=== PATIENT | male | born 1955 | race Caucasian/White ===

== ENCOUNTER → 2017-08-22 09:32 | Outpatient (CLI) | payer OTHER, SELFPAY ==
[2017-08-22 10:31] LABS: Absolute Lymphocyte Count 2.05 X10^3/ul (0.83-4.51); Absolute Neutrophil Count 4.5 X10^3/uL (2.0-7.7); Basophil# 0.03 X10^3/uL; Basophil% 0.4 % (0-1); Eosinophil# 0.11 X10^3/uL; Eosinophils% 1.5 % (0-5); Hematocrit 44.9 % (40-54); Hemoglobin 15.5 g/dl (13.0-16.5); Lymphocyte # 2.05 X10^3/ul (4.0); Lymphocyte % 27.3 % (19-41); Mean Corp Hgb Conc 34.5 g/gl (32-36); Mean Corpuscular Hgb 32.1 pg (27.0-32.0); Mean Platelet Vol. 9.3 fl (6.2-12.0); Monocyte# 0.73 X10^3/uL; Monocyte% 9.7 % (0-10); Neutrophil # 4.49 X10^3/uL (2.7-7.7); Neutrophil % 59.6 % (47-70); Platelet Count 233 K/mm3 (150-450); RBC Distribution Width CV 13.7 % (11.6-14.6); RBC Distribution Width SD 45.1 fl (35.1-43.9); Red Blood Count 4.83 M/mm3 (4.6-6.2); White Blood Count 7.5 K/mm3 (4.4-11.0)
[2017-08-22 10:33] LABS: POSITIVE COUNT NO; POSITIVE DIFFERENTIAL NO; POSITIVE MORPHOLOGY NO
[2017-08-22 10:51] LABS: Microalbumin,Random Urine 5.7 mg/L (NO RANGE EST.); Microalbumin:Creatinine Ratio 6.2 mg/g CRE (<30 mg/g CRE)
[2017-08-22 11:06] LABS: ALB/GLOB Ratio 1.3 RATIO (0.9-2.4); AST(SGOT) 20 U/L (15-37); Alanine Aminotransfer ALT/SGPT 31 U/L (12-78); Albumin, Serum 3.9 g/dL (3.4-5.0); Alkaline Phosphatase 70 U/L (45-117); Anion Gap 8 (5-15); BUN 17 mg/dL (7-18); BUN/Creat Ratio 20.7 RATIO (10-20); Calcium,Total 9.2 mg/dL (8.5-10.1); Chloride 105 mmol/L (98-107); Cholesterol 187 mg/dL (200); Creatinine, Serum 0.82 mg/dL (0.70-1.30); EST Glomerular Filtration Rate 101 mL/min (>60); Est Glom Filt Rate - Afr Amer 122 mL/min (>60); Globulin 3.1 g/dL (2.3-3.5); Glucose 116 mg/dL (70-110); High Density Lipoprotein 46 mg/dL; PSA,Total - Annual Screen 1.49 ng/mL (0.00-4.00); Potassium 4.5 mmol/L (3.5-5.1); Sodium Level 141 mmol/L (136-145); Triglycerides 160 mg/dL; Very Low Density Lipoprotein 32 mg/dL (5-40)
[2017-08-22 13:30] LABS: Uric Acid 4.2 mg/dL (3.5-7.2)
== END | disposition home or self-care (01) ==
PROVIDERS: Family Provider Family Medicine; PCP Family Medicine; Visit Provider Family Medicine
DX: Z00.00 Encounter for general adult medical examination without abnormal findings (principal); E78.5 Hyperlipidemia, unspecified; I10 Essential (primary) hypertension; R73.02 Impaired glucose tolerance (oral); Z12.5 Encounter for screening for malignant neoplasm of prostate
CPT/HCPCS: 36415; 80053; 80061; 82043; 82570; 83036; 84153; 84550; 85025; G0103

== ENCOUNTER → 2019-10-07 10:31 | Outpatient (CLI) | payer OTHER, SELFPAY ==
[2019-10-07 12:06] LABS: Absolute Lymphocyte Count 2.25 X10^3/uL (0.83-4.51); Absolute Neutrophil Count 4.9 X10^3/uL (2.0-7.7); Basophil# 0.06 X10^3/uL; Basophil% 0.7 % (0-1); Eosinophil# 0.12 X10^3/uL; Eosinophils% 1.4 % (0-5); Hematocrit 46.5 % (40-54); Hemoglobin 15.6 g/dL (13.0-16.5); Lymphocyte # 2.25 X10^3/ul (4.0); Lymphocyte % 26.8 % (19-41); Mean Corp Hgb Conc 33.5 g/dL (32-36); Mean Corpuscular Hgb 32.1 pg (27.0-32.0); Mean Corpuscular Volume 95.7 fL (80-94); Mean Platelet Vol. 9.5 fl (6.2-12.0); Monocyte# 0.95 X10^3/uL; Monocyte% 11.3 % (0-10); NRBC Flagged by Analyzer 0 % (0-5); Neutrophil # 4.91 X10^3/uL (2.7-7.7); Neutrophil % 58.5 % (47-70); Platelet Count 229 K/mm3 (150-450); RBC Distribution Width CV 13.2 % (11.6-14.6); RBC Distribution Width SD 45.3 fl (35.1-43.9); Red Blood Count 4.86 M/mm3 (4.6-6.2); White Blood Count 8.4 K/mm3 (4.4-11.0)
[2019-10-07 12:40] LABS: Hemoglobin A1c 5.9 % (4.2-6.3)
[2019-10-07 12:52] LABS: ALB/GLOB Ratio 1.1 RATIO (0.9-2.4); AST(SGOT) 16 U/L (15-37); Alanine Aminotransfer ALT/SGPT 29 U/L (16-61); Albumin, Serum 3.6 g/dL (3.2-5.0); Alkaline Phosphatase 86 U/L (45-117); Anion Gap 7 (5-15); BUN 16 mg/dL (7-18); BUN/Creat Ratio 20.8 RATIO (10-20); Calcium,Total 8.4 mg/dL (8.5-10.1); Chloride 105 mmol/L (98-107); Cholesterol 184 mg/dL (200); Creatinine, Serum 0.77 mg/dL (0.70-1.30); EST Glomerular Filtration Rate 109 mL/min (>60); Est Glom Filt Rate - Afr Amer 131 mL/min (>60); Globulin 3.2 g/dL (2.2-4.2); Glucose 104 mg/dL (74-106); High Density Lipoprotein 44 mg/dL; PSA,Total - Annual Screen 1.19 ng/mL (0.00-4.00); Potassium 4.2 mmol/L (3.5-5.1); Protein, Total 6.8 g/dL (6.4-8.2); Sodium Level 139 mmol/L (136-145); Triglycerides 186 mg/dL; Very Low Density Lipoprotein 37 mg/dL (5-40)
== END ==
PROVIDERS: Family Provider Family Medicine; PCP Family Medicine; Visit Provider Family Medicine
DX: Z00.00 Encounter for general adult medical examination without abnormal findings (principal); R73.02 Impaired glucose tolerance (oral); M10.9 Gout, unspecified
CPT/HCPCS: 36415; 80053; 80061; 83036; 84153; 85025; G0103

== ENCOUNTER → 2020-12-20 13:12 | Outpatient (CLI) | payer OTHER, SELFPAY ==
[2020-12-20 15:42] LABS: Absolute Lymphocyte Count 1.96 X10^3/uL (0.83-4.51); Basophil# 0.04 X10^3/uL; Basophil% 0.4 % (0-1); Eosinophil# 0.13 X10^3/uL; Eosinophils% 1.4 % (0-5); Hematocrit 45.3 % (40-54); Hemoglobin 15.6 g/dL (13.0-16.5); Lymphocyte # 1.96 X10^3/ul (4.0); Lymphocyte % 21.5 % (19-41); Mean Corp Hgb Conc 34.4 g/dL (32-36); Mean Corpuscular Hgb 32.2 pg (27.0-32.0); Mean Corpuscular Volume 93.4 fL (80-94); Mean Platelet Vol. 9.8 fl (6.2-12.0); Monocyte% 9.9 % (0-10); NRBC Flagged by Analyzer 0 % (0-5); Neutrophil # 5.99 X10^3/uL (2.7-7.7); Neutrophil % 65.8 % (47-70); Platelet Count 274 K/mm3 (150-450); RBC Distribution Width CV 13.2 % (11.6-14.6); RBC Distribution Width SD 44.6 fl (35.1-43.9); Red Blood Count 4.85 M/mm3 (4.6-6.2); White Blood Count 9.1 K/mm3 (4.4-11.0)
[2020-12-20 15:57] LABS: ALB/GLOB Ratio 1.1 RATIO (0.9-2.4); AST(SGOT) 15 U/L (15-37); Alanine Aminotransfer ALT/SGPT 29 U/L (16-61); Albumin, Serum 3.5 g/dL (3.2-5.0); Alkaline Phosphatase 91 U/L (45-117); Anion Gap 8 (5-15); BUN 21 mg/dL (7-18); BUN/Creat Ratio 23.3 RATIO (10-20); Calcium,Total 8.3 mg/dL (8.5-10.1); Chloride 109 mmol/L (98-107); Cholesterol 199 mg/dL (200); EST Glomerular Filtration Rate 90 mL/min (>60); Est Glom Filt Rate - Afr Amer 109 mL/min (>60); Globulin 3.2 g/dL (2.2-4.2); Glucose 113 mg/dL (74-106); High Density Lipoprotein 49 mg/dL; PSA,Total - Annual Screen 1.54 ng/mL (0.00-4.00); Protein, Total 6.7 g/dL (6.4-8.2); Sodium Level 142 mmol/L (136-145); Triglycerides 264 mg/dL; Uric Acid 3.9 mg/dL (3.5-7.2); Very Low Density Lipoprotein 53 mg/dL (5-40)
[2020-12-20 16:19] LABS: Hemoglobin A1c 5.9 % (3.8-5.6)
== END ==
PROVIDERS: PCP Family Medicine; Visit Provider Family Medicine
DX: Z00.00 Encounter for general adult medical examination without abnormal findings (principal); R73.02 Impaired glucose tolerance (oral); M10.9 Gout, unspecified
CPT/HCPCS: 36415; 80053; 80061; 83036; 84153; 84550; 85025; G0103

== ENCOUNTER 2021-02-02 17:42 | Outpatient (RCR) | payer OTHER, SELFPAY ==
[2021-02-02] MEDS: COVID-19 VACC, MRNA(PFIZER)/PF 30 MCG/0.3 ML SYRINGE IM (16:16)
[2021-02-23] MEDS: COVID-19 VACC, MRNA(PFIZER)/PF 30 MCG/0.3 ML SYRINGE IM (16:06)
== END 2021-05-02 23:59 ==
LOC: IMMUN 17:42
PROVIDERS: PCP Family Medicine; Visit Provider Family Medicine
DX: Z23 Encounter for immunization (principal)
CPT/HCPCS: 0001A; 0002A; 91300

== ENCOUNTER → 2021-04-27 15:18 | Outpatient (CLI) | payer OTHER, SELFPAY | PROVIDERS: PCP Family Medicine; Visit Provider Family Medicine | DX: Z20.828 Contact with and (suspected) exposure to other viral communicable diseases (principal) | CPT/HCPCS: 87635; U0005; U0003 ==

== ENCOUNTER 2022-03-12 08:15 | Outpatient (CLI) | payer MEDICARE, SELFPAY ==
--- NOTE | 2022-03-12 08:19 | US_ITS ---
INDICATION: SCREENING EXAMINATION: Ultrasound US Abdominal Aorta (retroperitoneal limited) TECHNIQUE: Williamson scale and color doppler imaging was obtained of the abdominal aorta. COMPARISON: None. FINDINGS: Atherosclerotic calcification visualized in the abdominal aorta, no evidence of endoluminal dilatation or arterial dissection is seen. The abdominal aorta measures 1.9 x 2.3 cm in its proximal segment, 1.6 x 1.5 cm in its mid segment and 1.4 x 1.6 cm in its distal segment. Atherosclerotic calcifications visualized in the common iliac vessels but no evidence of aneurysmal dilatation or arterial dissection is seen. The right common iliac measures 0.8 x 1.1 cm and the left common iliac vessel measures 0.8 x 1.0 cm. US/Aorta IMPRESSION: No sonographic evidence of abdominal aortic aneurysm. Electronically Signed: John Mcdowell MD at 10:24 EDT ,
== END 2022-03-12 23:59 | disposition home or self-care (01) ==
PROVIDERS: PCP Family Medicine; Referring Provider Family Medicine; Visit Provider Family Medicine
DX: Z13.6 Encounter for screening for cardiovascular disorders (principal); Z72.0 Tobacco use
CPT/HCPCS: 76775

== ENCOUNTER 2022-06-11 07:23 | Day surgery (SDC) | payer MEDICARE, SELFPAY ==
--- NOTE | 2022-06-11 | COLBX_PTH ---
PATIENT: DEBORA MCCOLLUM LOC: EN U#:[id number] AGE/SX: 67/M ROOM: RE06/11/[address]: Dr. Jazmin Owens MD : 1955 BED: DIS: 06/11/2022 SPEC #: [id number] RECD: 06/11/22 12:46 STATUS: EDUARD ABRAHAM #: [id number] TEA: 06/11/22 00:[address]: Jazmin Owens DEPT: SURGICAL PATHOLOGY RECD BY: Jaren Palma ENTERED: 06/11/22 12:47 SP TYPE: COLON BX OTHR DR: Dr. Peter Skinner, DO Tissues: A - Cecum, NOS B - Ascending colon C - Gastric mucous membrane D - Transverse colon E - Descending colon Procedures: Surgery Specimen Level IV HEADER OPERATION: Colonoscopy ? open access (MAC) PRE-OP DIAGNOSIS: Screening TISSUE SUBMITTED: A ? Cecal polyp biopsy, B ? Ascending polyps biopsy (2), C ? Hepatic flexure polyps (x2) biopsy and hot snare, D ? Transverse polyp, E ? Descending polyps (x3) MICROSCOPIC DIAGNOSIS A. Cecal polyp, biopsy: Fragments of hyperplastic polyp. B. Ascending colon polyps, biopsy: Fragments of tubular adenoma. C. Colonic polyps at hepatic flexure, biopsy: Fragments of tubular adenoma. D. Transverse colon polyp, biopsy: Fragments of tubular adenoma. E. Descending colon polyps, biopsy: Fragments of tubular adenoma. AM:donya 06/12/2022 MICROSCOPIC DESCRIPTION Slides are reviewed. GROSS DESCRIPTION A - Received in fixative is one container labeled with the patient's name and designated cecal polyp biopsy. The specimen consists of two irregular fragments of light sharma soft tissue that in aggregate measure 0.3 x 0.3 x 0.1 cm. The specimen is totally submitted in one cassette. B - Received in fixative is one container labeled with the patient's name and designated ascending polyp biopsy. The specimen consists of multiple irregular fragments of light sharma soft tissue that in aggregate measure 0.8 x 0.3 x 0.1 cm. The specimen is totally submitted in one cassette. C - Received in fixative is one container labeled with the patient's name and designated hepatic flexure polyp. The specimen consists of multiple irregular fragments of light sharma soft tissue that in aggregate measure 1 x 0.3 x 0.1 cm. The specimen is totally submitted in one cassette. D - Received in fixative is one container labeled with the patient's name and designated transverse polyp. The specimen consists of two irregular fragments of light sharma soft tissue that in aggregate measure 1 x 0.5 x 0.2 cm. The specimen is totally submitted in one cassette. E - Received in fixative is one container labeled with the patient's name and designated descending polyp. The specimen consists of multiple irregular fragments of light sharma soft tissue that in aggregate measure 0.8 x 0.5 x 0.2 cm. The specimen is totally submitted in one cassette. / AM:donya 06/11/2022 TC:5 CPT: 31273 x5
--- NOTE | 2022-06-11 07:41 | HP.PCM_ITS ---
HPI - General HPI Narrative DEBORA MCCOLLUM, is a 67 M who presents for screening colonoscopy. Patient had previous colonoscopy and EGD about [address] Méndez was within normal limits no polyps. Patient denies any family history of colon cancer. Patient denies any chronic abdominal pain/nausea/vomiting. Patient is on lansoprazole for GERD denies any symptoms on the medication. Patient having bowel movements daily denies any blood except did have a little bit on the toilet paper this morning after the prep. [facility] Medical History (Updated 06/06/22 @ 13:25 by Priya Natarajan) Arthralgia of ankle Arthritis Calcaneal spur CPAP (continuous positive airway pressure) dependence DDD (degenerative disc disease) Dyslipidemia Essential hypertension Fissure, anorectal Gastric reflux GERD (gastroesophageal reflux disease) Gout History of irregular heartbeat History of stress test Obesity Sleep apnea Smoker Wears glasses Wears partial dentures Home Medications allopurinol 300 mg tablet 300 mg PO DAILY 04/10/22 [History Last Taken Unknown] ascorbic acid (vitamin C) 1,000 mg tablet 1 g PO DAILY 04/10/22 [History Last Taken Unknown] aspirin 81 mg tablet,delayed release 81 mg PO DAILY 04/10/22 [History Last Taken Unknown] cholecalciferol (vitamin D3) 50 mcg (2,000 unit) capsule 50 mcg PO DAILY 04/10/22 [History Last Taken Unknown] docusate sodium 100 mg capsule 100 mg PO QHS 04/10/22 [History Last Taken Unknown] lansoprazole 30 mg capsule,delayed release (Prevacid) 30 mg PO DAILY 04/10/22 [History Last Taken Unknown] lisinopril 10 mg tablet 10 mg PO DAILY 04/10/22 [History Last Taken Unknown] magnesium oxide 250 mg PO DAILY 04/10/22 [History Last Taken Unknown] multivit,Ca,min-iron 8 mg-folic acid 200 mcg-lycopene 600 mcg tablet (Centrum Men) 1 tab PO DAILY 04/10/22 [History Last Taken Unknown] omega-3 fatty acids 1,000 mg capsule 1,000 mg PO DAILY 04/10/22 [History Last Taken Unknown] psyllium husk 3.4 gram/5.4 gram oral powder (Metamucil) 1 tsp PO BID 04/10/22 [History Last Taken Unknown] vitamin E 800 unit capsule 800 unit PO DAILY 04/10/22 [History Last Taken Unknown] zinc 50 mg tablet 50 mg PO DAILY 04/10/22 [History Last Taken Unknown] Lactobacillus acidophilus 10 billion cell capsule (Probiotic) 10,000 mmu cells PO DAILY 06/06/22 [History Last Taken Unknown] Allergy/AdvReac Type Severity Reaction Status Date / Time codeine Allergy Severe Nausea/Vom/ Verified 06/11/22 07:54 Diarrhea Penicillins Allergy Severe PT UNSURE Verified 06/11/22 07:54 OF REACTION Sulfa (Sulfonamide Allergy Severe PT UNSURE Verified 06/11/22 07:54 Antibiotics) OF REACTION Family History (Updated 04/10/22 @ 16:14 by Sonya Bell) Mother Arthritis Breast cancer Skin cancer Father Myocardial infarction Hypertension Surgical History (Updated 04/10/22 @ 16:12 by Sonya Bell) History of appendectomy Social History (Updated 04/10/22 @ 16:16 by Sonya Bell) current occupational status: employed Smoking Status: Current every day smoker tobacco type: cigarettes Tobacco: How many years used: 30 Past Medical/Surgical History Planned Operation Planned Operative Procedure/s: COLONOSCOPY Previous Hospitalizations/Surgeries HX Hospitalizations: No Any Problems With Anesthesia: No You/Your Family Experience Fever (Hyperthermia) With Anes: No Cholinesterase deficiency: No Cardiovascular Hx Hypertension: Yes (CONTROLLED ON MED) Respiratory Hx Sleep Apnea: Yes CPAP: Yes BIPAP: No Hx Respiratory Tract Infection/Cold (presently): No Result (for STOP score): Positive Smoking Status: Current every day smoker Neurological Does patient have nerve stimulator: No Allergies codeine Allergy (Severe, Verified 06/11/22 07:54) Nausea/Vom/Diarrhea Penicillins Allergy (Severe, Verified 06/11/22 07:54) PT UNSURE OF REACTION Sulfa (Sulfonamide Antibiotics) Allergy (Severe, Verified 06/11/22 07:54) PT UNSURE OF REACTION Discharge Is Pt Admitted From a Long-Term, or a Nursing Home: No After D/C, Where Do you Plan to Go: Assisted Living Physical Exam Const alert, oriented x3 and no apparent distress HEENT normocephalic and head/scalp atraumatic Resp normal respiratory effort Cardio regular rate GI soft to palpation and non-tender; Negative for non-distended Palpation: Negative for guarding Extremity no clubbing, cyanosis or edema Neuro CN's II-XII intact bilaterally Psych mental status grossly normal Assessment & Plan Assessment/Plan (1) Encounter for screening for malignant neoplasm of colon: Surgery Risks - Colonoscopy Risks Include but are not Limited To: Risks include but are not limited to: Bleeding, perforation requiring further surgery, inability to complete colonoscopy requiring barium enema.
[2022-06-11] MEDS: Lactated Ringers 1,000 ML 15 ML IV (07:50)
[2022-06-11 07:59] VITALS: BP 164/85; PULSE 63; RESP 16; TEMP 36.8; O2SAT 96; BMI 36.6
[2022-06-11 09:50] VITALS: BP 128/67; PULSE 84; RESP 18; TEMP 36.5; O2SAT 95
[2022-06-11 09:55] VITALS: BP 124/69; BP 128/67; PULSE 81; RESP 16; O2SAT 94
[2022-06-11 10:00] VITALS: BP 118/69; BP 128/67; PULSE 74; RESP 16; O2SAT 95
--- NOTE | 2022-06-11 10:00 | OP.COLON_ITS ---
Patient Name: Efraín Gannon Procedure Date: 06/11/2022 8:55 AM Date of : 1955 Age: 67 Procedure: Colonoscopy Indications: Screening for colorectal malignant neoplasm Providers: Jazmin Owens MD Medicines: Monitored Anesthesia Care Patient Profile: This is a 67 year old male. Last Colonoscopy: more than 10 years ago. Complications: No immediate complications. Procedure: Pre-Anesthesia Assessment: - Prior to the procedure, a History and Physical was performed, and patient medications and allergies were reviewed. The patient's tolerance of previous anesthesia was also reviewed. The risks and benefits of the procedure and the sedation options and risks were discussed with the patient. All questions were answered, and informed consent was obtained. Prior Anticoagulants: The patient has taken no previous anticoagulant or antiplatelet agents. ASA Grade Assessment: Per anesthesia. After reviewing the risks and benefits, the patient was deemed in satisfactory condition to undergo the procedure. After I obtained informed consent, the scope was passed under direct vision. Throughout the procedure, the patient's blood pressure, pulse, and oxygen saturations were monitored continuously. The Colonoscope was introduced through the anus and advanced to the cecum, identified by the appendiceal orifice, ileocecal valve and palpation. The colonoscopy was performed without difficulty. The patient tolerated the procedure well. The quality of the bowel preparation was good. Scope In: 9:07:20 AM Scope Withdrawal Time 0 hours 33 minutes 56 seconds Scope Out: 9:46:37 AM Total Procedure Duration Time 0 hours 39 minutes 17 seconds Findings: Hemorrhoids were found on perianal exam. External and internal hemorrhoids were found during retroflexion. The hemorrhoids were Grade I (internal hemorrhoids that do not prolapse). Five sessile polyps were found in the hepatic flexure, ascending colon and cecum. The polyps were less than 5 mm in size. These polyps were removed with a cold biopsy forceps. Resection and retrieval were complete. Five semi-pedunculated polyps were found in the descending colon, transverse colon and hepatic flexure. The polyps were 3 to 5 mm in size. These polyps were removed with a hot snare. Resection and retrieval were complete. Multiple small-mouthed diverticula were found in the sigmoid colon. The exam was otherwise without abnormality. Impression: - Hemorrhoids found on perianal exam. - External and internal hemorrhoids. - Five less than 5 mm polyps at the hepatic flexure, in the ascending colon and in the cecum, removed with a cold biopsy forceps. Resected and retrieved. - Five 3 to 5 mm polyps in the descending colon, in the transverse colon and at the hepatic flexure, removed with a hot snare. Resected and retrieved. - Diverticulosis in the sigmoid colon. - The examination was otherwise normal. Recommendation: - Discharge patient to home. - High fiber diet. - Continue present medications. - Await pathology results. - Repeat colonoscopy in 3 years for surveillance based on pathology results. Procedure Code(s): --- Professional --- 74403, PT, Colonoscopy, flexible; with removal of tumor(s), polyp(s), or other lesion(s) by snare technique 17731, 59, Colonoscopy, flexible; with biopsy, single or multiple Diagnosis Code(s): --- Professional --- Z12.11, Encounter for screening for malignant neoplasm of colon K64.0, First degree hemorrhoids D12.2, Benign neoplasm of ascending colon D12.0, Benign neoplasm of cecum D12.4, Benign neoplasm of descending colon D12.3, Benign neoplasm of transverse colon (hepatic flexure or splenic flexure) K57.30, Diverticulosis of large intestine without perforation or abscess without bleeding CPT copyright 2017 [employer]. All rights reserved. The codes documented in this report are preliminary and upon him coder review may be revised to meet current compliance requirements. MD Jazmin Rizzo MD 06/11/2022 10:00:23 AM This report has been signed electronically. Number of Addenda: 0 Note Initiated On: 06/11/2022 8:55 AM
--- NOTE | 2022-06-11 10:01 | OP.CCLET_ITS ---
06/11/2022 Peter Skinner [address] [place] [address] Re : Colonoscopy procedure for Efraín Gannon Dear Dr. Skinner This procedure was performed on Saturday, June 11, 2022. My impressions and recommendations are as follows: Impressions : - Hemorrhoids found on perianal exam. - External and internal hemorrhoids. - Five less than 5 mm polyps at the hepatic flexure, in the ascending colon and in the cecum, removed with a cold biopsy forceps. Resected and retrieved. - Five 3 to 5 mm polyps in the descending colon, in the transverse colon and at the hepatic flexure, removed with a hot snare. Resected and retrieved. - Diverticulosis in the sigmoid colon. - The examination was otherwise normal. Recommendations : - Discharge patient to home. - High fiber diet. - Continue present medications. - Await pathology results. - Repeat colonoscopy in 3 years for surveillance based on pathology results. My findings are described in the full procedure note, which is enclosed. If I can be of further assistance, please feel free to contact me at Doctor phone number(s): , Work: . Sincerely, MD Jazmin Rizzo MD 06/11/2022 10:00:23 AM This report has been signed electronically.
[2022-06-11 10:05] VITALS: BP 128/67; BP 131/66; PULSE 61; RESP 16; TEMP 36.2; O2SAT 94
[2022-06-11 10:33] VITALS: BP 128/67
== END 2022-06-11 10:53 | disposition home or self-care (01) ==
LOC: EN 07:26 → AC 07:26
PROVIDERS: PCP Family Medicine; Referring Provider Family Medicine; Visit Provider Surgery
PROC: 0DJD8ZZ Inspection of Lower Intestinal Tract, Via Natural or Artificial Opening Endoscopic (ICD-10-PCS; CPT 45378; principal; 2022-06-11 08:25)
DX: Z12.11 Encounter for screening for malignant neoplasm of colon (principal); K64.4 Residual hemorrhoidal skin tags; I10 Essential (primary) hypertension; M10.9 Gout, unspecified; K21.9 Gastro-esophageal reflux disease without esophagitis; K64.0 First degree hemorrhoids; Z90.49 Acquired absence of other specified parts of digestive tract; E78.5 Hyperlipidemia, unspecified; K57.30 Diverticulosis of large intestine without perforation or abscess without bleeding; F17.210 Nicotine dependence, cigarettes, uncomplicated; D12.2 Benign neoplasm of ascending colon; D12.0 Benign neoplasm of cecum; D12.4 Benign neoplasm of descending colon; D12.3 Benign neoplasm of transverse colon
CPT/HCPCS: 45380; 45385; 88305; J7120; J1610; J2405

== ENCOUNTER 2023-08-29 12:53 | Emergency (ER) | payer MEDICARE, SELFPAY ==
[2023-08-29 12:54] VITALS: BP 174/82; PULSE 116; RESP 22; TEMP 36.8; O2SAT 98; BMI 36.9
--- NOTE | 2023-08-29 14:33 | ED.VIS.LOWEX ---
HPI History of Present Illness HPI Narrative: Patient presents with left lower leg redness and swelling that has been getting worse over the past 3 days. Patient states it came on gradually. Patient admits to some mild pain over the area. Patient describes it as cramping. Patient states nothing makes it worse and nothing makes it better. Patient states he did recently scratch his lower leg on the corner of his bed frame. Patient denies any other injuries. Patient admits to some subjective fevers but denies any chills. Patient denies any discharge or drainage. Patient also admits to some urinary frequency. Patient denies any paresthesias or weakness. Patient is unsure of his last tetanus. Chief Complaint: Lower Extremity Injury Informant: patient Onset/Context/Timing Onset: Days (3) Context: Gradual Onset Timing: Continuous Quality of Pain: - (Cramping) Location: Left lower leg Worsened by: Nothing Relieved by: Nothing Associated Symptoms Associated Symptoms: Negative for Parasthesia, Weakness or Loss of Funtion Narrative Tetanus Immunization: Unknown PFSH [facility] Medical History Arthralgia of ankle Arthritis Calcaneal spur CPAP (continuous positive airway pressure) dependence DDD (degenerative disc disease) Dyslipidemia Essential hypertension Fissure, anorectal Gastric reflux GERD (gastroesophageal reflux disease) Gout History of irregular heartbeat History of stress test Obesity Sleep apnea Smoker Wears glasses Wears partial dentures Home Medications allopurinol 300 mg tablet 300 mg PO DAILY 04/10/22 [History Last Taken Unknown] ascorbic acid (vitamin C) 1,000 mg tablet 1 g PO DAILY 04/10/22 [History Last Taken Unknown] aspirin 81 mg tablet,delayed release 81 mg PO DAILY 04/10/22 [History Last Taken 06/10/22] cholecalciferol (vitamin D3) 50 mcg (2,000 unit) capsule 50 mcg PO DAILY 04/10/22 [History Last Taken Unknown] docusate sodium 100 mg capsule 100 mg PO QHS 04/10/22 [History Last Taken Unknown] lansoprazole 30 mg capsule,delayed release (Prevacid) 30 mg PO DAILY 04/10/22 [History Last Taken Unknown] lisinopril 10 mg tablet 10 mg PO DAILY 04/10/22 [History Last Taken 06/11/22] magnesium oxide 250 mg PO DAILY 04/10/22 [History Last Taken Unknown] multivit,Ca,min-iron 8 mg-folic acid 200 mcg-lycopene 600 mcg tablet (Centrum Men) 1 tab PO DAILY 04/10/22 [History Last Taken Unknown] omega-3 fatty acids 1,000 mg capsule 1,000 mg PO DAILY 04/10/22 [History Last Taken Unknown] psyllium husk 3.4 gram/5.4 gram oral powder (Metamucil) 1 tsp PO BID 04/10/22 [History Last Taken Unknown] vitamin E 800 unit capsule 800 unit PO DAILY 04/10/22 [History Last Taken Unknown] zinc 50 mg tablet 50 mg PO DAILY 04/10/22 [History Last Taken Unknown] Lactobacillus acidophilus 10 billion cell capsule (Probiotic) 10,000 mmu cells PO DAILY 06/06/22 [History Last Taken Unknown] cephalexin 500 mg capsule 500 mg PO Q6 #40 CAPSULES 08/29/23 [Rx Last Taken Unknown] Allergy/AdvReac Type Severity Reaction Status Date / Time codeine Allergy Severe Nausea/Vom/ Verified 08/29/23 12:53 Diarrhea Penicillins Allergy Severe PT UNSURE Verified 08/29/23 12:53 OF REACTION Sulfa (Sulfonamide Allergy Severe PT UNSURE Verified 08/29/23 12:53 Antibiotics) OF REACTION Family History (Updated 04/10/22 @ 16:14 by Sonya Bell) Mother Arthritis Breast cancer Skin cancer Father Myocardial infarction Hypertension Surgical History History of appendectomy Social History current occupational status: employed Smoking Status: Current every day smoker tobacco type: cigarettes Tobacco: How many years used: 30 ROS ROS ED Constitutional Constitutional ED: Reports fever(s) and subjective; Denies chills Eyes Eyes: Denies blurry vision or change in vision ENT ENT ED: Denies rhinorrhea or sore throat Cardiovascular Cardiovascular: Denies chest pain or palpitations Respiratory/Chest Respiratory/Chest: Denies cough or dyspnea Gastrointestinal Gastrointestinal: Denies nausea or vomiting Genitourinary Genitourinary ED: Reports urinary frequency; Denies dysuria or hematuria Musculoskeletal Musculoskeletal: Denies back pain or neck pain Integumentary Reports Abrasions; Denies abscess Neurologic Neurologic: Denies headache(s) or weakness Allergic/Immunologic Allergic/Immunologic ED: Denies mouth swelling or urticaria EXAM Physical Exam Const Vital Signs: 08/29/23 12:54 Temperature 98.2 F Temperature Source Temporal Pulse Rate 116 H Respiratory Rate 22 H Blood Pressure 174/82 H Blood Pressure Mean 112 Pulse Ox 98 Oxygen Delivery Method Room Air Positive well nourished and well developed General Appearance ED: well developed and NAD HEENT Reports moist mucous membranes Neck full ROM and supple Extremity Extremity Narrative: There is tenderness, edema, erythema, and warmth over the posterior aspect of the left calf. There is no discharge or drainage. There is no induration. There is no fluctuance. There is no evidence of any abscess. Pedal pulses are equal bilaterally. Sensation was intact to light touch in all digits. Capillary refill was less than 2 seconds in all digits. There is full range of motion of the left lower extremity. Neuro oriented x3, CN's II-XII intact bilaterally, moves all extremities and no sensory deficits noted Sensorium / Orientation: alert Motor Exam: strength 5/5 throughout Psych mental status grossly normal MDM MDM MDM Narrative Medical decision making narrative: Differential diagnosis includes cellulitis, DVT, and urinary tract infection. CBC will be obtained to assess for leukocytosis and anemia. Basic metabolic profile will be obtained to assess for electrolyte abnormality and renal function. Venous duplex of the left lower extremity will be obtained to assess for DVT. Urinalysis will be obtained to assess for urinary tract infection. Lab Data Attestation: I reviewed the patient's lab results. Lab results narrative: CBC was reviewed. There is a leukocytosis of 18.2. The remainder is essentially within normal limits. Basic metabolic profile was reviewed and was within normal limits. Urinalysis was reviewed. There is no evidence of urinary tract infection or hematuria. Labs: Laboratory Results - last 24 hr 08/29/23 08/29/23 13:35 14:22 WBC 18.2 H RBC 4.76 Hgb 15.4 Hct 45.0 MCV 94.5 H MCH 32.4 H MCHC 34.2 RDW Std Deviation 47.4 H RDW Coeff of Storm 13.9 Plt Count 246 MPV 9.3 Immature Gran % (Auto) 0.800 Neut % (Auto) 83.6 H Lymph % (Auto) 7.1 L [place] % (Auto) 8.1 Eos % (Auto) 0.2 Baso % (Auto) 0.2 Absolute Neuts (auto) 15.2 H Absolute Lymphs (auto) 1.29 Nucleated RBC % 0 Sodium 140 Potassium 3.8 Chloride 107 Carbon Dioxide 30.0 Anion Gap 3 L BUN 14 Creatinine 0.78 Estim Creat Clear Calc 64.69 Est GFR (MDRD) Af Amer 128 Est GFR (MDRD) Non-Af 106 BUN/Creatinine Ratio 18.0 Glucose 133 H Calcium 9.3 Urine Color Yellow Urine Clarity Cloudy Urine pH 8.0 Ur Specific [place] 1.015 Urine Protein Negative Urine Glucose (UA) Normal Urine Ketones Negative Urine Occult Blood Negative Urine Nitrite Negative Urine Bilirubin Negative Urine Urobilinogen Normal Ur Leukocyte Esterase Negative Urine RBC 0 SEEN Urine WBC 0 SEEN Ur Squamous Epith Cells 0 SEEN Amorphous Sediment 2+ Urine Bacteria 2+ Urine Mucus 0 SEEN Radiography Diagnostic Testing: Venous duplex of the left lower extremity was obtained. There is no evidence of DVT. Treatment and Re-Evaluation Narrative: Patient was given IV fluids. Patient was given a dose of Ancef here. Patient was given a dose of morphine here. Patient was feeling better on reevaluation. Patient was advised of his findings. Patient was given a prescription for Keflex. Patient was instructed to follow-up with his primary care physician in 3 to 5 days for further evaluation. Patient understood and was agreeable with the plan. All questions were answered. Discharge Plan Triage Chief Complaint: Lower Extremity Injury ED Provider: Giacomo Xiong Dx/Rx/DC Orders Clinical Impression: Cellulitis of left lower leg, Leukocytosis Instructions: ED Cellulitis Prescriptions: New cephalexin [cephalexin] 500 mg capsule 500 mg PO Q6 Qty: 40 0RF No Action allopurinol 300 mg tablet 300 mg PO DAILY docusate sodium 100 mg capsule 100 mg PO QHS lansoprazole [Prevacid] 30 mg capsule,delayed release(DR/EC) 30 mg PO DAILY lisinopril 10 mg tablet 10 mg PO DAILY aspirin 81 mg tablet,delayed release (DR/EC) 81 mg PO DAILY ascorbic acid (vitamin C) 1,000 mg tablet 1 g PO DAILY vitamin E 800 unit capsule 800 unit PO DAILY zinc 50 mg tablet 50 mg PO DAILY magnesium oxide 250 mg magnesium tablet 250 mg PO DAILY omega-3 fatty acids 1,000 mg capsule 1,000 mg PO DAILY Centrum Men 8 mg iron- 200 mcg-600 mcg tablet 1 tab PO DAILY cholecalciferol (vitamin D3) 50 mcg (2,000 unit) capsule 50 mcg PO DAILY Metamucil 3.4 gram/5.4 gram powder 1 tsp PO BID Rx Instructions: mix into at least 8 oz of water or juice before administering Probiotic 10 billion cell Capsule 10,000 mmu cells PO DAILY Primary Care Provider: Peter Skinner Referrals: Peter Skinner, DO [Primary Care Provider] - 3-5 Days Disposition Disposition: Home, Self Care
--- NOTE | 2023-08-29 14:38 | VDLE_ITS ---
Reason For Study: Left leg pain RIGHT LEFT CFV is compressible, spontaneous, competent GSV is normal. and demonstrates pulsatile venous flow. CFV is compressible, spontaneous, competent, Procedure and demonstrates pulsatile venous flow. This is a venous duplex using B-mode, color FV is compressible, spontaneous, competent flow and spectral Doppler. and demonstrates pulsatile venous flow. Exam performed portable in ED. POP V is compressible, spontaneous, competent A preliminary report was called and/or faxed and demonstrates pulsatile venous flow. to Dr. Xiong and Heidi RN. T/P Trunk is compressible. PTV is compressible. LT PerV is compressible. VL/Venous Duplex US, Unilateral Interpretation Summary There is no evidence of left lower extremity deep vein thrombosis. Left great s aphenous vein appears patent and compressible segmentally. Pulsatile venous flow is noted in bilatera l lower extremities suspicious for proximal venous hypertension or obstruction. Clinical correlatio n would be appropriate. Normal flow patterns right common femoral vein Ordering Physician: Giacomo Xiong Referring Physician: Peter Skinner Performed By: Leny Parrish RVT
[2023-08-29 14:46] LABS: Absolute Lymphocyte Count 1.29 X10^3/uL (0.83-4.51); Absolute Neutrophil Count 15.2 X10^3/uL (2.0-7.7); Basophil# 0.04 X10^3/uL; Basophil% 0.2 % (0-1); Eosinophil# 0.04 X10^3/uL; Eosinophils% 0.2 % (0-5); Hemoglobin 15.4 g/dL (13.0-16.5); Lymphocyte # 1.29 X10^3/ul (0.83-4.51); Lymphocyte % 7.1 % (19-41); Mean Corp Hgb Conc 34.2 g/dL (32-36); Mean Corpuscular Hgb 32.4 pg (27.0-32.0); Mean Corpuscular Volume 94.5 fL (80-94); Mean Platelet Vol. 9.3 fl (6.2-12.0); Monocyte# 1.47 X10^3/uL; Monocyte% 8.1 % (0-10); NRBC Flagged by Analyzer 0 % (0-5); Neutrophil # 15.19 X10^3/uL (2.7-7.7); Neutrophil % 83.6 % (47-70); Platelet Count 246 K/mm3 (150-450); RBC Distribution Width CV 13.9 % (11.6-14.6); RBC Distribution Width SD 47.4 fl (35.1-43.9); Red Blood Count 4.76 M/mm3 (4.6-6.2); White Blood Count 18.2 K/mm3 (4.4-11.0)
[2023-08-29 14:46] LABS: Mucous, Urine 0 SEEN /hpf (<or=2+); Red Blood Cells-Urine 0 SEEN /hpf (0-5); Squamous Epithelial Cells - UA 0 SEEN /hpf (0-5); White Blood Cells 0 SEEN /hpf (0-5)
[2023-08-29] MEDS: 0.9% Normal Saline (1000mL) 1,000 ML 1000 ML IV (14:50)
[2023-08-29] MEDS: Morphine 4 MG/ML Syringe IV (14:50)
[2023-08-29] MEDS: Diphth,Pertuss(Acell),Tet Vac 0.5 ML Vial IM (14:51)
[2023-08-29] MEDS: Cefazolin 1 GM/50 ML BAG IV (15:03)
[2023-08-29 15:06] LABS: Color, Urine Yellow (Yellow); Glucose, Dipstick Normal (Normal); Ketone-Dipstick Negative (Negative); Leukocyte Esterase-Dipstick Negative /ul (Negative); Nitrite-Dipstick Negative (Negative); Occult Blood-Urine Negative /ul (Negative); Protein-Dipstick Negative (Negative); Specific Gravity, Urine 1.015 (1.002-1.030); Urine Bilirubin Dipstick Negative (Negative); Urine Clarity Cloudy (Clear); Urine Urobilinogen Normal (Normal)
[2023-08-29 15:17] LABS: Anion Gap 3 (5-15); BUN 14 mg/dL (7-18); Calcium,Total 9.3 mg/dL (8.5-10.1); Chloride 107 mmol/L (98-107); Creatinine, Serum 0.78 mg/dL (0.70-1.30); EST Glomerular Filtration Rate 106 mL/min (>60); Est Glom Filt Rate - Afr Amer 128 mL/min (>60); Estimated Creatinine Clearance 64.69 ml/min; Glucose 133 mg/dL (74-106); Potassium 3.8 mmol/L (3.5-5.1); Sodium Level 140 mmol/L (136-145)
[2023-08-29 15:36] LABS: Amorphous Sediment 2+; Bacteria 2+ /hpf (None Seen)
== END 2023-08-29 17:30 | disposition home or self-care (01) ==
PROVIDERS: Emergency Provider Emergency Medicine; PCP Family Medicine; Visit Provider Emergency Medicine
DX: L03.116 Cellulitis of left lower limb (principal); I10 Essential (primary) hypertension; R35.0 Frequency of micturition; F17.210 Nicotine dependence, cigarettes, uncomplicated; E78.5 Hyperlipidemia, unspecified; D72.829 Elevated white blood cell count, unspecified; G47.30 Sleep apnea, unspecified
CPT/HCPCS: 80048; 81001; 85025; 90715; 93971; 96365; 96366; 96375; 99284; J7030; A4216

== ENCOUNTER → 2024-01-06 | Outpatient (CLI) | payer MEDICARE, SELFPAY ==
--- NOTE | 2024-01-06 17:59 | CT_ITS ---
STUDY: LOW DOSE CT LUNG CANCER SCREENING REASON FOR EXAM: Male, 68 years old. SCREENING FOR LUNG CA. Patient smoked one and half packs per day for 30 years. RADIATION DOSAGE (If Supplied By Facility): CTDIvol = ( 4.02 ) mGy, DLP = ( 141.45 ) mGycm TECHNIQUE: No contrast was administered. Low dose technique was utilized (average mAS-38 and kVp 120). 1.25 mm axial source images with a slice interval of 1.25-mm were reconstructed in lung windows. 2.5 mm axial source images with a slice interval of 2.5-mm were reconstructed in lung windows. 5.0 mm axial source images with a slice interval of 5.0-mm were reconstructed in soft tissue windows. COMPARISON: None. NODULES: No suspicious nodules are seen. Emphysema: Mild emphysema. Endobronchial lesion: None Aorta: Atherosclerotic plaque formation of the aortic arch. CORONARY ARTERIES: Coronary artery calcification is seen. Heart: Unremarkable Pulmonary artery: Unremarkable Mediastinal nodes: Calcified mediastinal and left hilar lymph nodes. Other chest and abdominal findings: CT/Low Dose CT Lung Screening IMPRESSION: Lung-RADS category 2 - Continue annual screening with LDCT in 12 months. IMPORTANT NOTES FOR USE: ACR Lung-RADS Version 1.1 Assessment Categories Release Date: 2018 Category: Coded 0-4 bases on nodule(s) with highest degree of suspicion. Negative screen is defined as categories 1 and 2; a positive screen is defined as categories 3 and 4. Category 3 and 4A nodules that are unchanged on interval CT should be coded as category 2, and individuals returned to screening in 12 months. Category 4X: Category 3 or 4 nodules with additional imaging findings that increase the suspicion of lung cancer, such as spiculation, GGN that doubles in size in 1 year, enlarged lymph notes, etc. Category Modifiers: S (significant finding unrelated to lung cancer) Electronically Signed: Antonino Leger MD at 10:59 EST ,
== END | disposition home or self-care (01) ==
LOC: CT 17:56
PROVIDERS: PCP Family Medicine; Referring Provider Family Medicine; Visit Provider Family Medicine
DX: Z12.2 Encounter for screening for malignant neoplasm of respiratory organs (principal); Z87.891 Personal history of nicotine dependence
CPT/HCPCS: 71271

== ENCOUNTER → 2025-01-04 | Outpatient (CLI) | payer MEDICARE, SELFPAY ==
[2025-01-04 13:19] LABS: Absolute Lymphocyte Count 2.03 X10^3/uL (0.83-4.51); Absolute Neutrophil Count 5.9 X10^3/uL (2.0-7.7); Basophil# 0.09 X10^3/uL; Eosinophil# 0.12 X10^3/uL; Eosinophils% 1.3 % (0-5); Hematocrit 44.2 % (40-54); Hemoglobin 14.8 g/dL (13.0-16.5); Lymphocyte # 2.03 X10^3/ul (0.83-4.51); Lymphocyte % 21.7 % (19-41); Mean Corp Hgb Conc 33.5 g/dL (32-36); Mean Corpuscular Hgb 31.2 pg (27.0-32.0); Mean Corpuscular Volume 93.1 fL (80-94); Monocyte# 1.08 X10^3/uL; Monocyte% 11.5 % (0-10); NRBC Flagged by Analyzer 0 % (0-5); Neutrophil # 5.86 X10^3/uL (2.7-7.7); Neutrophil % 62.5 % (47-70); Platelet Count 256 K/mm3 (150-450); RBC Distribution Width CV 13.9 % (11.6-14.6); RBC Distribution Width SD 47.4 fl (35.1-43.9); Red Blood Count 4.75 M/mm3 (4.6-6.2); White Blood Count 9.4 K/mm3 (4.4-11.0)
[2025-01-04 13:59] LABS: AST(SGOT) 15 U/L (15-37); Alanine Aminotransfer ALT/SGPT 27 U/L (16-61); Albumin, Serum 3.4 g/dL (3.2-5.0); Alkaline Phosphatase 82 U/L (45-117); Anion Gap 7 (5-15); BUN 22 mg/dL (7-18); Calcium,Total 8.6 mg/dL (8.5-10.1); Chloride 105 mmol/L (98-107); Cholesterol 182 mg/dL (200); Creatinine, Serum 0.69 mg/dL (0.70-1.30); EST Glomerular Filtration Rate 121 mL/min (>60); Est Glom Filt Rate - Afr Amer 147 mL/min (>60); Globulin 3.5 g/dL (2.2-4.2); Glucose 95 mg/dL (74-106); High Density Lipoprotein 52 mg/dL; PSA,Total - Annual Screen 2.26 ng/mL (0.00-4.00); Potassium 4.2 mmol/L (3.5-5.1); Protein, Total 6.9 g/dL (6.4-8.2); Sodium Level 139 mmol/L (136-145); Triglycerides 159 mg/dL; Uric Acid 4.2 mg/dL (3.5-7.2); Very Low Density Lipoprotein 32 mg/dL (5-40)
[2025-01-04 14:19] LABS: Hemoglobin A1c 6.2 % (3.8-5.6)
== END | disposition home or self-care (01) ==
LOC: LAB 12:42
PROVIDERS: PCP Family Medicine; Referring Provider Family Medicine; Visit Provider Family Medicine
DX: I25.10 Atherosclerotic heart disease of native coronary artery without angina pectoris (principal); I10 Essential (primary) hypertension; M10.9 Gout, unspecified; R73.01 Impaired fasting glucose; Z12.5 Encounter for screening for malignant neoplasm of prostate
CPT/HCPCS: 36415; 80053; 80061; 83036; 84153; 84550; 85025; G0103

== ENCOUNTER → 2025-01-05 | Outpatient (CLI) | payer MEDICARE, SELFPAY ==
[2025-01-05 16:54] LABS: Microalbumin:Creatinine Ratio 5.7 mg/g CRE (<30 mg/g CRE)
== END | disposition home or self-care (01) ==
LOC: LAB 15:54
PROVIDERS: PCP Family Medicine; Referring Provider Family Medicine; Visit Provider Family Medicine
DX: I25.10 Atherosclerotic heart disease of native coronary artery without angina pectoris (principal); I10 Essential (primary) hypertension; M10.9 Gout, unspecified; R73.01 Impaired fasting glucose; Z12.5 Encounter for screening for malignant neoplasm of prostate
CPT/HCPCS: 82043; 82570

== ENCOUNTER → 2025-01-18 | Outpatient (CLI) | payer MEDICARE, SELFPAY ==
--- NOTE | 2025-01-18 13:20 | CT_ITS ---
PROCEDURE: LOW DOSE CT LUNG SCREENING REASON FOR EXAM: Current smoker. Patient smokes between 1.5-2 packs of cigarettes per day for 20 years. TECHNIQUE: Low Dose CT Lung Screening without contrast COMPARISON: Comparison is made with prior examination dated January 06, 2024. FINDINGS: PULMONARY NODULES: (Only nodules >6mm are reported) Nodules described below are on series 1 unless otherwise specified. Scattered bilateral calcified granulomas more prominent at the left lung base. Pulmonary Nodules: No concerning pulmonary nodules. Hardware:None Lymph Nodes:No mediastinal hilar or axillary lymphadenopathy. Heart and Vasculature:Normal heart size. No pericardial effusion.Thoracic aorta and pulmonary arteries have normal contours; noncontrast technique limits evaluation. Coronary Artery Calcifications: Present Lungs and Airways: Mild emphysematous changes are present. Pleura:No pleural effusion. No pneumothorax. Upper Abdomen:Visualized portions of the upper abdominal viscera are unremarkable. Bones:Degenerative changes of the thoracic spine. CT/Low Dose CT Lung Screening IMPRESSION: 1. BASED ON THE ACR LUNG RADS FOR THE MOST SUSPICIOUS NODULE (IF ANY) DESCRIBE D IN THIS REPORT, THE OVERALL LUNG RADS SCORE IS 2.2 - BENIGN (BASED ON IMAGING FEATURES OR INDOLENT BEHAVIOR). RECOMMEND 12-MON TH SCREENING LDCT.. 2. SMOKING CESSATION COUNSELING IS RECOMMENDED IF THE PATIENT IS STILL SMOKING . 3. OTHER SIGNIFICANT FINDINGSNone. One or more dose reduction techniques were used (e.g., Automated exposure contr ol, adjustment of the mA and/or kV according to patient size, use of iterative reconstruction technique). The following information is provided for reference:Lung-RADS 2021 Assessment C ategories. Additional information involving Lung-RADS is available at [email or web address]. 0-INCOMPLETE 1-NEGATIVE:No nodules or definitely benign nodules. Complete, central, popcorn , or centric ring calcifications OR fat containing 2-BENIGN APPEARANCE (based on imaging features or indolent behavior). Juxtaple ural nodule: < 10mm AND solid; smooth margins; oval, entiform, or triangular shape Solid nodule: <6mm at baseline or new< 4mm Part solid Nodule: < 6mm total mean diameter at baseline Nonsolid nodule:(GGN) < 30mm OR >=30mm stable or slowly growing Airway nodule, subsegmental at baseline, new, or stable Category 3 nodule stabl e or decreased in size at 6-month follow-up CT or Category 3 or 4A nodules that resolve on follow-up OR category 4B findings prov en to be benign following diagnotic work up. 3 - Probably Benign (Based on imaging features or behavior) Solid Nodule: >= 6 to <8mm at baseline OR new 4 to <6mm Part-solid nodule: >= 6mm toal mean diam. with solid component <6mm at baseline OR new < 6mm total mean diam. Non-solid nodule: GGN >= 30mm at baseline or new Atypical pulmonary cyst: Growing cystic component (mean diam.) of thick-walled cyst Category 4A nodule stable or decreased in size at 3-month follow-up CT (excl.ai rway). 4A - Suspicious Solid nodule: >=8 to < 15mm at baseline OR growing < 8mm OR new 6 to < 8mm Part solid nodule: >= 6mm total mean diam. w/ solid component >=6mm to < 8mm at baseline OR new or growing < 4mm solid component Airway nodule, segmental or more proximal at baseline or new Atypical pulmonary cyst: Thick-walled OR multilocular at baseline OR becomes mu ltilocular 4B - Very Suspicious Airway nodule, segmental or more proximal, and stable or growing Solid nodule: >= 15mm at baseline OR new or growing >= 8mm Part solid nodule: Solid component >= 8mm OR new or growing >= 4mm solid compon ent Atypical pulmonary cyst: Thick-walled with growing wall thickness/nodularity OR Growing multilocular (mean diam.) OR Multilocular with increased loculation or new/increased opacity Slow-growing solid or part solid nodule w/ growth over multiple screening exams 4X - Very Suspicious Category 3 or 4 nodules with additional features that increase the suspicion fo r lung cancer. S - Clinically Significant or potentially significant findings (non-lung cancer ) 3. OTHER SIGNIFICANT FINDINGSNone. One or more dose reduction techniques were used (e.g., Automated exposure contr ol, adjustment of the mA and/or kV according to patient size, use of iterative reconstruction technique). The following information is provided for reference:Lung-RADS 2021 Assessment C ategories. Additional information involving Lung-RADS is available at [email or web address]. 0-INCOMPLETE 1-NEGATIVE:No nodules or definitely benign nodules. Complete, central, popcorn , or centric ring calcifications OR fat containing 2-BENIGN APPEARANCE (based on imaging features or indolent behavior). Juxtaple ural nodule: < 10mm AND solid; smooth margins; oval, entiform, or triangular shape Solid nodule: <6mm at baseline or new< 4mm Part solid Nodule: < 6mm total mean diameter at baseline Nonsolid nodule:(GGN) < 30mm OR >=30mm stable or slowly growing Airway nodule, subsegmental at baseline, new, or stable Category 3 nodule stabl e or decreased in size at 6-month follow-up CT or Category 3 or 4A nodules that resolve on follow-up OR category 4B findings prov en to be benign following diagnotic work up. 3 - Probably Benign (Based on imaging features or behavior) Solid Nodule: >= 6 to <8mm at baseline OR new 4 to <6mm Part-solid nodule: >= 6mm toal mean diam. with solid component <6mm at baseline OR new < 6mm total mean diam. Non-solid nodule: GGN >= 30mm at baseline or new Atypical pulmonary cyst: Growing cystic component (mean diam.) of thick-walled cyst Category 4A nodule stable or decreased in size at 3-month follow-up CT (excl.ai rway). 4A - Suspicious Solid nodule: >=8 to < 15mm at baseline OR growing < 8mm OR new 6 to < 8mm Part solid nodule: >= 6mm total mean diam. w/ solid component >=6mm to < 8mm at baseline OR new or growing < 4mm solid component Airway nodule, segmental or more proximal at baseline or new Atypical pulmonary cyst: Thick-walled OR multilocular at baseline OR becomes mu ltilocular 4B - Very Suspicious Airway nodule, segmental or more proximal, and stable or growing Solid nodule: >= 15mm at baseline OR new or growing >= 8mm Part solid nodule: Solid component >= 8mm OR new or growing >= 4mm solid compon ent Atypical pulmonary cyst: Thick-walled with growing wall thickness/nodularity OR Growing multilocular (mean diam.) OR Multilocular with increased loculation or new/increased opacity Slow-growing solid or part solid nodule w/ growth over multiple screening exams 4X - Very Suspicious Category 3 or 4 nodules with additional features that increase the suspicion fo r lung cancer. S - Clinically Significant or potentially significant findings (non-lung cancer ) Reading Location: [id number]
== END | disposition home or self-care (01) ==
LOC: CT 13:19
PROVIDERS: PCP Family Medicine; Referring Provider Family Medicine; Visit Provider Family Medicine
DX: Z12.2 Encounter for screening for malignant neoplasm of respiratory organs (principal); F17.210 Nicotine dependence, cigarettes, uncomplicated
CPT/HCPCS: 71271